=== PATIENT | female | born 1980 | race Caucasian/White ===

== ENCOUNTER → 2023-05-16 | Outpatient (CLI) | payer OTHER ==
[2023-05-22 09:12] LABS: HPV GENOTYPE 16 Not Detected; HPV GENOTYPE 18 Not Detected; HPV HIGH RISK Not Detected; HPV SOURCE Cervical
== END ==
LOC: LAB 14:30 → LAB SHORT 14:30
PROVIDERS: Registered Nurse Community Health
DX: Z12.4 Encounter for screening for malignant neoplasm of cervix (principal)
CPT/HCPCS: 87624; G0123

== ENCOUNTER → 2023-05-16 | Outpatient (CLI) | payer OTHER | LOC: LAB SHORT 07:59 → LAB 07:59 | DX: N84.0 Polyp of corpus uteri (principal) | CPT/HCPCS: 88305 ==

== ENCOUNTER 2023-10-27 06:41 | Day surgery (SDC) | payer OTHER ==
[~2023-10-27] VITALS: Ht 160 cm; Wt 71.6 kg
[2023-10-27] MEDS ORDERED: MOUNJARO7.5 MG/0.5 SQ (07:05)
[2023-10-27] MEDS ORDERED: Lactated Ringer's 1,000 ML IV ONE (07:22)
--- NOTE | 2023-10-27 07:23 | NUR ---
10/27/23 0723 Ania Godwin TAPED ON NOSE AND DERMAL ON RIGHT FOREARM
[2023-10-27] MEDS ORDERED: FentaNYL Citrate 50 MCG/ML 2 ML Injection ONE (07:34)
[2023-10-27] MEDS ORDERED: propofoL 40 ML IV ONE (07:34)
[2023-10-27] MEDS ORDERED: Midazolam HCl 1MG / ML 2ML Vial ONE (07:34)
--- NOTE | 2023-10-27 08:37 | NUR ---
10/27/23 0837 Darcy Lynn TOTAL FLUID DEFICIT 45ML, SURGEON NOTIFIED LENGTH 4.5CM WIDTH 2.6CM 1 MIN 4 SECONDS 64 PERALTA
--- NOTE | 2023-10-27 08:43 | NUR ---
10/27/23 0843 Jessica Fournier PATIENT AWAKE AND TALKING IN PACU, NO COMPLAINTS OF PAIN.
[2023-10-27 08:44] VITALS: BP 117/66
[2023-10-27] MEDS ORDERED: OxyCODONE 5 mg/Acetamin 325 mg TABLET ONE (08:55)
== END 2023-10-27 09:25 | disposition home or self-care (01) ==
LOC: ORSCSDS 06:41
PROVIDERS: Obstetrics & Gynecology
PROC: 0U5B8ZZ Destruction of Endometrium, Via Natural or Artificial Opening Endoscopic (ICD-10-PCS; principal; 2023-10-27 08:00)
DX: N92.0 Excessive and frequent menstruation with regular cycle (principal); D25.9 Leiomyoma of uterus, unspecified; Z79.899 Other long term (current) drug therapy
CPT/HCPCS: A9270; J2250; J2704; J3010